=== PATIENT | female | born 1980 | race Hispanic/Latino ===

== ENCOUNTER → 2018-05-06 | Outpatient (CLI) | payer OTHER ==
[~2018-05-06] MED LIST: GADOBENATE DIMEGLUMINE 1 ML IV ONE
--- NOTE | 2018-05-06 11:16 | Diagnostic Imaging Report ---
EXAM: MR Abdomen WITHOUT and WITH Contrast Magnetic Resonance Cholangiopancreatography (M.R.C.P.) INDICATION: \S\RIGHT UPPER QUADRANT PAIN COMPARISON: None. TECHNIQUE: Multiplanar and multisequence imaging was performed of the abdomen without and with contrast. T1-weighted, T2-weighted images, T1-weighted in and [id number], and Diffusion weighted images. Dynamic, post gadolinium T1-weighted spoiled gradient echo scans. M.R.C.P. Technique: Multiplanar, multisequence MRCP was performed, with sequences including coronal turbo spin-echo T1-weighted scans, [facility] MRCP scans, coronal spin, coronal MPR 2, SMRCP 3D HR, [facility] MRCP BLOOM. IV Contrast: 20 mL of MultiHance gadolinium Oral Contrast: None Medications: None COMPLICATIONS: None FINDINGS: LOWER THORAX: Unremarkable. HEPATOBILIARY: A 1.2 cm T2 intermediate signal lesion in segment CYNDEE shows partial peripheral enhancement with the central aspect becoming isointense to the liver, likely a hemangioma. No biliary ductal dilation. No filling defects in the CBD. GALLBLADDER: Absent SPLEEN: No splenomegaly. PANCREAS: No focal masses or ductal dilatation. ADRENALS: No adrenal nodules KIDNEYS/URETERS: Kidneys enhance symmetrically. No hydronephrosis. Right inferior pole 0.6 cm simple cyst. No solid mass lesions. GI TRACT: No abnormal distention, wall thickening, or evidence of bowel obstruction. LYMPH NODES: No lymphadenopathy. VESSELS: Unremarkable. PERITONEUM / RETROPERITONEUM: No free fluid. BONES: Unremarkable. SOFT TISSUES: Foci of blooming in the subcutaneous epigastric fat slightly right of midline may represent surgical clips. IMPRESSION: 1. No MRI findings to explain right upper quadrant pain. 2. Right hepatic 1.2 cm lesion likely represents a hemangioma. 3. Right renal subcentimeter simple cyst. Signed by: DR. Bradley Glass MD on 05/06/2018 11:13 AM
== END ==
LOC: MRI 07:40
PROVIDERS: ATTEND Internal Medicine Gastroenterology
DX: R10.11 Right upper quadrant pain (principal)
CPT/HCPCS: 74183